=== PATIENT | male | born 1955 | race Caucasian/White ===

== ENCOUNTER 2021-05-01 21:11 | Emergency (ER) | payer MEDICARE ==
[~2021-05-01] VITALS: Ht 182.9 cm; Wt 91.6 kg
[2021-05-02] MEDS ORDERED: ZOFRAN4 MG PO (01:39)
[2021-05-02] MEDS ORDERED: HYDROCODON-ACE1 EA10 PO (01:39)
== END 2021-05-02 02:22 | disposition home or self-care (01) ==
LOC: ED 21:11
DX: N13.2 Hydronephrosis with renal and ureteral calculous obstruction (principal)
CPT/HCPCS: 51798; 74176; 80053; 81001; 83690; 83735; 85025; 99284-25; J1885